=== PATIENT | male | born 1995 | race Caucasian/White ===

== ENCOUNTER 2024-09-01 18:04 | Emergency (ER) | payer BC, OTHER ==
[2024-09-01 18:08] VITALS: RESP 18; TEMP 98.4
--- NOTE | 2024-09-01 18:28 | XR ---
EXAMINATION TYPE: XR hand complete LT DATE OF EXAM: 09/01/2024 6:21 PM COMPARISON: None CLINICAL INDICATION: Male, 29 years old with history of trauma; , pain TECHNIQUE: XR hand complete LT left views were obtained. FINDINGS/IMPRESSION: 1. Soft tissue swelling and soft tissue injury involving the third digit without evidence of fractur e. 2. Slightly flexed third digit distal interphalangeal joint, correlate for injury of the tendon with physical exam. Consider MRI. [facility], , 09/01/2024 6:25 PM
[2024-09-01] MEDS: LIDOCAINE 1% INJ 10MG/ML (20 ML MDV) SQ ONE (19:00)
[2024-09-01] MEDS: DIPH,PERTUS(ACELL)TETVAC-LF 0.5 ML VIAL IM ONE (19:00)
--- NOTE | 2024-09-01 19:18 | ED ---
Skin/Abscess/FB HPI - General Chief complaint: Skin/Abscess/Foreign Body Stated complaint: left hand injury Time Seen by Provider: 09/01/24 19:15 Source: patient, RN notes reviewed Mode of arrival: ambulatory Limitations: no limitations - History of Present Illness Initial comments: 29-year-old male presenting for left hand injury 2 hours ago. States he excellently smashed his third left finger between a I believe a floor marylu and truck shaft. No other injuries. Denies blood thinners. Last tetanus unknown. States he is having difficulty moving the tip of his third digit. - Related Data Previous Rx's Medication Instructions Recorded Cephalexin [Keflex] 500 mg PO Q12H 7 Days #14 cap 09/01/24 Allergies Allergy/AdvReac Type Severity Reaction Status Date / Time No Known Allergies Allergy Verified 09/01/24 18:08 Review of Systems ROS Statement: Those systems with pertinent positive or pertinent negative responses have been documented in the HPI. ROS Other: All systems not noted in ROS Statement are negative. Past Medical History Past Medical History: No Reported History Past Surgical History: No Surgical Hx Reported Past Psychological History: No Psychological Hx Reported Smoking Status: Never smoker Past Alcohol Use History: Occasional Past Drug Use History: None Reported General Exam Limitations: no limitations General appearance: alert, in no apparent distress Head exam: Present: atraumatic, normocephalic, normal inspection Left Forearm Wrist exam: Present: normal inspection, full ROM. Absent: tenderness, swelling Hand Wrist exam: Present: laceration. Absent: normal inspection (2 cm laceration overlying dorsal aspect of third DIP joint with active bleeding. DIP joint is stuck in flexion.), full ROM, tenderness Vascular: Present: normal capillary refill, radial pulse. Absent: vascular compromise Neurological exam: Present: alert, oriented X3 Psychiatric exam: Present: normal affect, normal mood Skin exam: Present: warm, dry, intact, normal color. Absent: rash Course Vital Signs 09/01/24 09/01/24 18:05 20:12 Temperature 98.4 F Pulse Rate 117 H 86 Respiratory 18 18 Rate Blood Pressure 152/99 116/78 O2 Sat by Pulse 99 98 Oximetry Procedures - Laceration Laceration #1 Consent Obtained: verbal consent Indication: laceration Site: hand Size (cm): 2 Description: linear Depth: simple, single layer Anesthetic Used: lidocaine 1%, without epi Anesthesia Technique: nerve block Amount (mls): 3 Pre-repair: wound explored, irrigated extensively, deep structures intact Type of Sutures: nylon Size of Sutures: 4-0 Number of Sutures: 2 Technique: simple, interrupted Patient Tolerated Procedure: well, no complications Additional Comments: Neurovascularly intact status post procedure Medical Decision Making - Medical Decision Making Was pt. sent in by a medical professional or institution (, PA, TECHNOLOGIST INFECTIOUS DISEASE, urgent care, hospital, or prison...) When possible be specific @ -No Did you speak to anyone other than the patient for history (EMS, parent, family, police, friend...)? What history was obtained from this source @ -No Did you review nursing and triage notes (agree or disagree)? Why? @ -I reviewed and agree with nursing and triage notes Were old charts reviewed (outside hosp., previous admission, EMS record, old EKG, old radiological studies, urgent care reports/EKG's, prison records)? Report findings @ -No old charts were reviewed Differential Diagnosis (chest pain, altered mental status, abdominal pain women, abdominal pain men, vaginal bleeding, weakness, fever, dyspnea, syncope, headache, dizziness, GI bleed, back pain, seizure, CVA, palpatations, mental health, musculoskeletal)? @ -Differential Musculoskeletal Muscular strain, contusion, ligament sprain, fracture, arthritis, septic arthritis, bursitis, cellulitis, muscle spasm, nerve compression, DVT, arterial occlusion, herpes zoster, electrolyte abnormality, tumor.... This is not meant to be in all inclusive list EKG interpreted by me (3pts min.). @ -None X-rays interpreted by me (1pt min.). @ -X-ray left hand reveals soft tissue swelling and injury involving third digit without evidence of fracture, slightly flexed third digit distal interphalangeal joint CT interpreted by me (1pt min.). @ -None done U/S interpreted by me (1pt. min.). @ -None done What testing was considered but not performed or refused? (CT, X-rays, U/S, labs)? Why? @ -None What meds were considered but not given or refused? Why? @ -None Did you discuss the management of the patient with other professionals (professionals i.e. , BE, TECHNOLOGIST INFECTIOUS DISEASE, lab, RT, psych nurse, social worker masters, senior informatica developer, teacher, commissioned security officer, comp field case manager)? Give summary @ -No Was smoking cessation discussed for >3mins.? @ -No Was critical care preformed (if so, how long)? @ -No Were there social determinants of health that impacted care today? How? (Homelessness, low income, unemployed, alcoholism, drug addiction, transportation, low edu. Level, literacy, decrease access to med. care, [facility], rehab)? @ -No Was there de-escalation of care discussed even if they declined (Discuss DNR or withdrawal of care, Hospice)? DNR status @ -No What co-morbidities impacted this encounter? (DM, HTN, Smoking, COPD, CAD, Cancer, CVA, ARF, Chemo, Hep., AIDS, mental health diagnosis, sleep apnea, morbid obesity)? @ -None Was patient admitted / discharged? Hospital course, mention meds given and route, prescriptions, significant lab abnormalities, going to OR and other pertinent info. @ -Discharge. This is a 29-year-old male presenting for left hand injury prior to arrival. Left DIP joint is stuck in flexion consistent with mallet finger with overlying 2 cm laceration at dorsal aspect of DIP joint. No visible tendon involvement. Neurovascularly intact. Tetanus was updated. X-ray left hand reveals soft tissue swelling and injury involving third digit without evidence of fracture. Wound was thoroughly irrigated and 2 sutures were placed. Finger splint was placed. Advised to follow-up in 7 days for suture removal and to follow-up with a hand surgeon next week. Appropriate return precautions and supportive care discussed. Case was discussed with my ED attending Dr. Dunn. Undiagnosed new problem with uncertain prognosis? @ -No Drug Therapy requiring intensive monitoring for toxicity (Heparin, Nitro, Insulin, Cardizem)? @ -No Were any procedures done? @ -No Diagnosis/symptom? @ -Mallet finger of left hand, left finger laceration Acute, or Chronic, or Acute on Chronic? @ -Acute Uncomplicated (without systemic symptoms) or Complicated (systemic symptoms)? @ -Uncomplicated Side effects of treatment? @ -No Exacerbation, Progression, or Severe Exacerbation? @ -No Poses a threat to life or bodily function? How? (Chest pain, [place], [place], pneumonia, PE, COPD, DKA, ARF, appy, cholecystitis, CVA, Diverticulitis, Homicidal, Suicidal, threat to staff... and all critical care pts) @ -No Disposition Clinical Impression: Mallet finger of left hand Disposition: HOME SELF-CARE Condition: Stable Instructions (If sedation given, give patient instructions): Jammed Finger (ED), Finger Laceration (ED) Additional Instructions: Take Keflex as prescribed. Keep finger splint on at all times until Ortho follow-up. Follow-up in 7 days for suture removal. [facility] or any other concerns. Prescriptions: Cephalexin [Keflex] 500 mg PO Q12H 7 Days #14 cap Is patient prescribed a controlled substance at d/c from ED?: No Referrals: None,Stated [Primary Care Provider] - 1-2 days Steve Cormier DO [Doctor of Osteopathic Medicine] - 1-2 days Time of Disposition: 19:59
[2024-09-01] MEDS: ACET/COD 300 MG/30 MG STARTER PACK 6 TAB BTL PO STA (20:07)
[2024-09-01 20:15] VITALS: BP 116/78; PULSE 86
== END 2024-09-01 20:23 | disposition home or self-care (01) ==
LOC: EC 18:04
DX: S61.213A Laceration without foreign body of left middle finger without damage to nail, initial encounter (principal); M20.012 Mallet finger of left finger(s); Z23 Encounter for immunization; W23.0XXA Caught, crushed, jammed, or pinched between moving objects, initial encounter
CPT/HCPCS: 73130; 90715; 12001; 99283; 90471; J2003